=== PATIENT | female | born 1990 | race American Indian/Alaskan Native ===

== ENCOUNTER 2017-09-22 14:43 | Emergency (ER) | payer MEDICAID ==
[2017-09-22 15:35] VITALS: BP 133/87; PULSE 86; RESP 16; TEMP 98; O2SAT 100
--- NOTE | 2017-09-22 15:58 | C.PDOC ---
History Of Present Illness 26-year-old female, presents to the emergency department with complaints of body aches, fever, and cough for the past few days. Patient was seen by PMD today who prescribed Tamiflu and Azithromycin. Patient states on her way out of his office she developed light headedness, and had a syncopal episode. Patient was taken to [facility], where she was in waiting room for two hours, which was too long, resulting in her coming to ED for evaluation. Denies any dizziness, numbness/weakness, headache or any other associated symptoms. No other complaints at this time. Time Seen by Provider: 09/22/17 15:39 Chief Complaint (Nursing): Flu-like Symptoms History Per: Patient History/Exam Limitations: no limitations Onset/Duration Of Symptoms: Days Current Symptoms Are (Timing): Better Past Medical History Reviewed: Historical Data, Nursing Documentation, Vital Signs Vital Signs: Last Vital Signs Temp 98 F 09/22/17 15:31 Pulse 86 09/22/17 15:31 Resp 16 09/22/17 15:31 BP 133/87 09/22/17 15:31 Pulse Ox 100 09/22/17 17:16 Family History: States: No Known Family Hx - Social History Hx Alcohol Use: No Hx Substance Use: No - Immunization History Hx Tetanus Toxoid Vaccination: No Hx Influenza Vaccination: No Hx Pneumococcal Vaccination: No Review Of Systems Constitutional: Positive for: Fever, Chills, Malaise Cardiovascular: Positive for: Other (syncope). Negative for: Chest Pain, Palpitations Respiratory: Positive for: Cough. Negative for: Shortness of Breath Gastrointestinal: Negative for: Nausea, Vomiting Musculoskeletal: Negative for: Back Pain Neurological: Negative for: Weakness, Numbness, Headache, Dizziness Physical Exam - Physical Exam Appears: Non-toxic, No Acute Distress Skin: Warm, Dry, No Rash Head: Atraumatic, Normacephalic Eye(s): bilateral: Normal Inspection, PERRL, EOMI Nose: Normal Oral Mucosa: Moist Neck: Normal ROM Chest: Symmetrical Cardiovascular: Rhythm Regular, No Murmur Respiratory: Normal Breath Sounds, No Accessory Muscle Use Extremity: Normal ROM Neurological/Psych: Oriented x3, Normal Speech, Other (No focal deficit) ED Course And Treatment - Laboratory Results Result Diagrams: 09/22/17 16:22 09/22/17 16:22 O2 Sat by Pulse Oximetry: 100 Progress Note: Bloodwork, EKG and UA ordered/reviewed. Patient treated with IVFs Disposition Counseled Patient/Family Regarding: Studies Performed, Diagnosis, Need For Followup - Disposition Referrals: Dillon Hoffman MD [Medical Doctor] - Disposition: HOME/ ROUTINE Disposition Time: 17:15 Condition: STABLE Additional Instructions: FOLLOW UP WITH YOUR DOCTOR IN 1-2 DAYS FILL PRESCRIPTIONS YOUR DOCTOR GAVE YOU DRINK PLENTY OF FLUIDS IBUPROFEN OR TYLENOL NEEDED FOR PAIN/FEVER RETURN TO ER IF SYMPTOMS WORSEN Instructions: Viral Syndrome (ED) Forms: Accompanied To ED By:, Smart Device Media (Moroccan), School Excuse, Work Excuse Print Language: CITIZEN OF [place] - POA Present On Arrival: None - Clinical Impression Clinical Impression: Influenza-like illness - Scribe Statement The provider has reviewed the documentation as recorded by the Scribe (Anil Justin) All medical record entries made by the Scribe were at my direction and personally dictated by me. I have reviewed the chart and agree that the record accurately reflects my personal performance of the history, physical exam, medical decision making, and the department course for this patient. I have also personally directed, reviewed, and agree with the discharge instructions and disposition.
[2017-09-22] MEDS ORDERED: Sodium Chloride 0.9% 1,000 ML IV ONE (16:07)
[2017-09-22 16:32] LABS: BASO % 0.9 % (0.0-2.0); EOS % 0.1 % (0.0-4.0); HEMOGLOBIN 11.4 g/dL (11.0-16.0); LYMPH # 0.4 K/uL (1.0-4.3); LYMPH % 14.1 % (20.0-40.0); MEAN CELL VOLUME 75.4 fL (81.0-99.0); MEAN CORPUSCULAR HEMOGLOBIN 24.1 pg (27.0-31.0); MEAN PLATELET VOLUME 7.7 fL (7.2-11.7); MONO # 0.6 K/uL (0.0-0.8); MONO % 19.8 % (0.0-10.0); NEUT % 65.1 % (50.0-75.0); NRBC % 0.1 % (0.0-2.0); RBC 4.71 Mil/uL (3.80-5.20); RED CELL DISTRIBUTION WIDTH 14.4 % (11.5-14.5); WHITE BLOOD COUNT 3.1 K/uL (4.8-10.8)
[2017-09-22 16:40] LABS: BLOOD UREA NITROGEN 6 mg/dL (7-17); CALCIUM 8.1 mg/dl (8.6-10.4); GFR AFRICAN-AMERICAN > 60; GFR NON-AFRICAN AMERICAN > 60
--- NOTE | 2017-09-24 10:41 | CARD ---
APPROVED REPORT EKG Measurement Heart [id number] <Conclusion> Normal sinus rhythm Nonspecific T wave abnormality Abnormal ECG
== END 2017-09-22 17:44 | disposition home or self-care (01) ==
LOC: C.ER 14:43
DX: J11.1 Influenza due to unidentified influenza virus with other respiratory manifestations (principal)
CPT/HCPCS: 80048; 85025; 96360; 99283; J7040

== ENCOUNTER 2018-10-29 11:17 | Emergency (ER) | payer OTHER, MEDICAID ==
[2018-10-29 11:31] VITALS: O2SAT 98
[2018-10-29] MEDS ORDERED: Sodium Chloride 0.9% 1,000 ML IV ONE (12:16)
[2018-10-29] MEDS ORDERED: Sodium Chloride 0.9% 1,000 ML ONE (12:33)
[2018-10-29 12:37] LABS: BASO # 0.1 K/uL (0.0-0.2); BASO % 0.8 % (0.0-2.0); EOS # 0.1 K/uL (0.0-0.7); EOS % 0.8 % (0.0-4.0); HEMOGLOBIN 11.4 g/dL (11.0-16.0); LYMPH # 1.8 K/uL (1.0-4.3); LYMPH % 22.6 % (20.0-40.0); MEAN CELL VOLUME 76.3 fL (81.0-99.0); MEAN CORPUSCULAR HEMOGLOBIN 25.2 pg (27.0-31.0); MEAN PLATELET VOLUME 7.6 fL (7.2-11.7); MONO # 0.7 K/uL (0.0-0.8); MONO % 8.7 % (0.0-10.0); NEUT # 5.3 K/uL (1.8-7.0); NEUT % 67.1 % (50.0-75.0); NRBC % 0.1 % (0.0-2.0); RBC 4.51 Mil/uL (3.80-5.20); RED CELL DISTRIBUTION WIDTH 13.9 % (11.5-14.5)
[2018-10-29 12:38] LABS: WHITE BLOOD COUNT 7.9 K/uL (4.8-10.8)
[2018-10-29 12:48] LABS: ALB/GLOB RATIO 1.4 (1.0-2.1); ALBUMIN 4.2 g/dL (3.5-5.0); ALT/SGPT 8 U/L (9-52); AST/SGOT 16 U/L (14-36); BLOOD UREA NITROGEN 7 mg/dL (7-17); CALCIUM 9.3 mg/dl (8.6-10.4); GFR NON-AFRICAN AMERICAN > 60
--- NOTE | 2018-10-29 13:29 | C.PDOC ---
History Of Present Illness 27 year old female patient who is 8 weeks presents to the emergency room complaining of weakness and fatigue x1 week. Associated symptom includes light headedness, nausea and lower abdominal pain that started last night. Pat ient denies vaginal bleed, vaginal discharge, back pain, urinary symptoms and fever. Time Seen by Provider: 10/29/18 11:47 Chief Complaint (Nursing): Abdominal Pain History Per: Patient History/Exam Limitations: no limitations Onset/Duration Of Symptoms: Days (x1 week) Current Symptoms Are (Timing): Still Present Past Medical History Reviewed: Historical Data, Nursing Documentation, Vital Signs Vital Signs: Last Vital Signs Temp 98.5 F 10/29/18 11:28 Pulse 81 10/29/18 11:28 Resp 18 10/29/18 11:28 BP 133/83 10/29/18 11:28 Pulse Ox 98 10/29/18 11:28 Family History: States: No Known Family Hx - Social History Hx Alcohol Use: No Hx Substance Use: No - Immunization History Hx Tetanus Toxoid Vaccination: No Hx Influenza Vaccination: No Hx Pneumococcal Vaccination: No Review Of Systems Constitutional: Positive for: Weakness, Other (fatigue). Negative for: Fever Cardiovascular: Positive for: Light Headedness Gastrointestinal: Positive for: Nausea, Abdominal Pain (low) Genitourinary: Negative for: Dysuria, Frequency, Incontinence, Hematuria, Vaginal Discharge, Vaginal Bleeding Musculoskeletal: Negative for: Back Pain Physical Exam - Physical Exam Appears: Non-toxic, No Acute Distress Skin: Warm, Dry, No Rash Head: Atraumatic, Normacephalic Eye(s): bilateral: Normal Inspection Oral Mucosa: Moist Throat: Normal Neck: Normal ROM, Supple Chest: Symmetrical Cardiovascular: Rhythm Regular, No Murmur Respiratory: No Rales, No Rhonchi, No Wheezing Gastrointestinal/Abdominal: Bowel Sounds (normal; active ), Soft, Tenderness (mild suprapubic tendnerness ), No Distention, No Guarding, No Rebound Back: No CVA Tenderness Neurological/Psych: Oriented x3, Normal Speech ED Course And Treatment - Laboratory Results Result Diagrams: 10/29/18 12:28 10/29/18 12:28 Lab Results: Total Bilirubin 0.7 mg/dL (0.2-1.3) 10/29/18 12:28 AST 16 U/L (14-36) 10/29/18 12:28 ALT 8 U/L (9-52) L 10/29/18 12:28 Alkaline Phosphatase 48 U/L (38-126) 10/29/18 12:28 Total Protein 7.1 g/dL (6.3-8.3) 10/29/18 12:28 Albumin 4.2 g/dL (3.5-5.0) 10/29/18 12:28 Globulin 2.9 gm/dL (2.2-3.9) 10/29/18 12:28 Albumin/Globulin Ratio 1.4 (1.0-2.1) 10/29/18 12:28 O2 Sat by Pulse Oximetry: 98 (RA) Pulse Ox Interpretation: Normal - CT Scan/US Obstetrics US Other Rad Studies (CT/US): Read By Radiologist, Radiology Report Reviewed CT/US Interpretation: Accession No. : [id number]. Patient Name / ID : JAKE MURRY / [id number]. Exam Date : 10/29/2018 13:43:37 ( Approved ). Study Comment : Sex / Age : F / 27Y. Creator : Fatemeh Simpson MD. Dictator : Fatemeh Simpson MD. Property Manager : Stick Roller : Fatemeh Simpson MD. Approver2 : Report Date : 10/29/2018 14:38:00. My Comment : . Date of service: 10/29/2018. PROCEDURE: OB Pelvic Ultrasound. HISTORY: 8wk with pain, r.o ectopic. COMPARISON: None available. FINDINGS: UTERUS: Single live intrauterine gestation. CRL measures 2.38 cm equivalent to 9 weeks and 0 day of gestational age. Gestational sac diameter measures 4.0 cm equivalent to 9 weeks and 2 days of gestational age. age (Ultrasound estimated): 9 weeks and 1 day. Date of delivery (Ultrasound estimated) : 06/02/2019. Heart rate: 176 bpm. Rebecca-gestational hemorrhage: None. Uterus measures 11.8 x 5.1 x 6.6 cm. No mass. CERVIX: Long and closed. No cervical abnormality seen. RIGHT OVARY: Measures 3.7 x 3.3 x 5.4 cm. No mass. Normal flow. LEFT OVARY: Measures 3.9 x 2.1 x 3.1 cm. No mass. Normal flow. FREE FLUID: None. OTHER FINDINGS: None. IMPRESSION: Single live intrauterine gestation with mean gestational age of 9 weeks and 1 day. The estimated date of delivery by ultrasound is 06/02/2019. The ultrasound dates correspond with the clinical dates. Medical Decision Making Medical Decision Making: plan: -- chem labs -- blood work -- transvaginal US -- IV fluids -- Zofran Progress: Labs reviewed and shows borderline hypokalemia UA not clean catch, pt not symptomatic for UTI Ultrasound shows IUP 9weeks 1 day. Patient remained well in no acute distress. Copy of labs and US given. Patient stable for discharge and instructed to follow up with promotions firm accounts manager Disposition Counseled Patient/Family Regarding: Diagnosis, Need For Followup, Rx Given - Disposition Referrals: Dillon Hoffman MD [Medical Doctor] - Disposition: HOME/ ROUTINE Disposition Time: 15:14 Condition: GOOD Additional Instructions: Follow up with promotions firm accounts manager Prescriptions: Ondansetron ODT [Zofran ODT] 1 odt PO BID PRN #6 odt PRN Reason: Nausea/Vomiting Instructions: Symptoms Forms: [facility] (Macedonian) - POA Present On Arrival: None - Clinical Impression Clinical Impression: Abdominal pain in - PA / [employer]IN [employer]AMER / Resident Statement HOWARD has reviewed & agrees with the documentation as recorded. - Scribe Statement The provider has reviewed the documentation as recorded by the Ramírez Quinn Do All medical record entries made by the Scribe were at my direction and personally dictated by me. I have reviewed the chart and agree that the record accurately reflects my personal performance of the history, physical exam, medi pilar decision making, and the department course for this patient. I have also personally directed, reviewed, and agree with the discharge instructions and disposition.
--- NOTE | 2018-10-29 14:41 | US ---
Date of service: 10/29/2018 PROCEDURE: OB Pelvic Ultrasound HISTORY: 8wk with pain, r.o ectopic COMPARISON: None available. FINDINGS: UTERUS: Single live intrauterine gestation. CRL measures 2.38 cm equivalent to 9 weeks and 0 day of gestational age. Gestational sac diameter measures 4.0 cm equivalent to 9 weeks and 2 days of gestational age. age (Ultrasound estimated): 9 weeks and 1 day Date of delivery (Ultrasound estimated) : 06/02/2019 Heart rate: 176 bpm. Rebecca-gestational hemorrhage: None. Uterus measures 11.8 x 5.1 x 6.6 cm. No mass CERVIX: Long and closed. No cervical abnormality seen. RIGHT OVARY: Measures 3.7 x 3.3 x 5.4 cm. No mass. Normal flow. LEFT OVARY: Measures 3.9 x 2.1 x 3.1 cm. No mass. Normal flow. FREE FLUID: None. OTHER FINDINGS: None. IMPRESSION: Single live intrauterine gestation with mean gestational age of 9 weeks and 1 day. The estimated date of delivery by ultrasound is 06/02/2019. The ultrasound dates correspond with the clinical dates.
[2018-10-29 15:08] LABS: SQUAMOUS EPITHIAL 26 /hpf (0-5); URINE BACTERIA RARE (<OCC); URINE BILIRUBIN NEGATIVE (NEGATIVE); URINE BLOOD 1+ (NEGATIVE); URINE CLARITY Hazy (Clear); URINE COLOR Yellow (YELLOW); URINE GLUCOSE (UA) NORMAL (Normal); URINE LEUKOCYTE ESTERASE 2+ Leu/uL (Negative); URINE PROTEIN NEGATIVE (NEGATIVE); URINE UROBILINOGEN NORMAL mg/dL (0.2-1.0)
[2018-10-29 15:11] LABS: HCG,QUALITATIVE URINE POSITIVE (NEGATIVE)
[2018-10-29 15:16] VITALS: BP 134/94; PULSE 82; RESP 20; TEMP 97.6
== END 2018-10-29 15:42 | disposition home or self-care (01) ==
LOC: C.ER 11:17
DX: R10.9 Unspecified abdominal pain (principal); O26.91 Pregnancy related conditions, unspecified, first trimester; Z3A.09 9 weeks gestation of pregnancy
CPT/HCPCS: 76805; 76817; 80053; 81001; 82948; 84702; 84703; 85025; 96361; 96374; 99284; J2405; J7030